=== PATIENT | female | born 1955 | race Caucasian/White ===

== ENCOUNTER → 2020-07-18 | Outpatient (CLI) | payer BC, OTHER ==
[~2020-07-18] MED LIST: ALPR0.25 PO; OMEP10CA5 PO
== END | disposition home or self-care (01) ==
LOC: RAD 13:32
PROVIDERS: ATTEND Physician Assistant
DX: K44.9 Diaphragmatic hernia without obstruction or gangrene (principal); Z98.84 Bariatric surgery status
CPT/HCPCS: 74240

== ENCOUNTER → 2020-09-01 | Outpatient (CLI) | payer OTHER ==
[~2020-09-01] MED LIST changes: +ATOR40TA78 PO; +BUPR300T94 PO; +CALC0.25 PO; +CYAN1TAB52 PO; +Calcium PO; +HAIR AND NAIL PO; +Iron PO; +LEVO75TA5 PO; +LISI-170 PO; +MULT-449 PO; +SERT50TA28 PO; +Vitamin C PO
[2020-09-01 17:09] LABS: ALANINE AMINOTRANSFERASE 35 U/L (12-78); ALBUMIN 3.5 g/dL (3.4-5.0); ANION GAP 7 mmol/L (5-15); CALCIUM 8.4 mg/dL (8.5-10.1); CHLORIDE 113 mmol/L (98-107); CREATININE 0.89 mg/dL (0.55-1.02)
[2020-09-01 17:11] LABS: ALKALINE PHOSPHATASE 122 U/L (45-117); BILIRUBIN,TOTAL 0.7 mg/dL (0.2-1.0); TOTAL PROTEIN 6.9 g/dL (6.4-8.2)
== END | disposition home or self-care (01) ==
LOC: STAR 15:30
PROVIDERS: ATTEND Thoracic Surgery (Cardiothoracic Vascular Surgery)
DX: Z01.818 Encounter for other preprocedural examination (principal); K44.9 Diaphragmatic hernia without obstruction or gangrene; Z20.822 Contact with and (suspected) exposure to COVID-19
CPT/HCPCS: 80053; 87635; 93005

== ENCOUNTER 2020-09-07 09:47 | Inpatient (IN) | payer OTHER ==
[~2020-09-07] VITALS: Ht 177.8 cm; Wt 169.0 kg
[~2020-09-07 09:47] MED LIST changes: +BUPIVACAINE/PF 0.5% ONE; +EPHEDRINE 50 MG/ML, 1ML IVPush PRN; +EPINEPHRINE 1 MG/ML, 1ML ONE; +FENTANYL PF 100 MCG/2ML IV PRN; +HYDROmorphone 1 MG/ML, 1ML INJ IVPush PRN; +LABETALOL 5MG/ML, 20ML IV PRN; +ONDANSETRON 2MG/ML, 2ML IVPush PRN; +OXYcodone 5 MG/5 ML ORAL.SOL UDC PO PRN; +PROMETHAZINE 25 MG/ML, 1ML IVPush PRN; +hydrALAzine 20 MG/ML, 1ML IV PRN
[2020-09-07] MEDS ORDERED: CHLORHEXIDINE 15 ML UDC MM ONE (10:30)
[2020-09-07] MEDS ORDERED: LACTATED RINGERS 1,000 ML IV SCH (10:30)
[2020-09-07 10:32] VITALS: BP 133/70
[2020-09-07] MEDS ORDERED: MIDAZOLAM 1 MG/ML, 2ML ONE (12:03)
[2020-09-07] MEDS ORDERED: FENTANYL PF 250 MCG/5ML ONE (12:03)
[2020-09-07] MEDS ORDERED: PROPOFOL 10 MG/ML, 20ML ONE (13:10)
[2020-09-07] MEDS ORDERED: LIDOCAINE-MPF 2% ,5ML ONE (13:10)
[2020-09-07] MEDS ORDERED: DEXAMETHASONE 4 MG/ML, 5ML ONE (13:10)
[2020-09-07] MEDS ORDERED: ROCURONIUM 10MG/ML,5ML ONE ×2 (13:10→14:21)
[2020-09-07] MEDS ORDERED: ONDANSETRON 2MG/ML, 2ML ONE (13:10)
[2020-09-07] MEDS ORDERED: CEFAZOLIN 1,000 MG ONE (13:10)
[2020-09-07] MEDS ORDERED: SUCCINYLCHOLINE 20 MG/ML, 10ML ONE (13:10)
[2020-09-07] MEDS ORDERED: SUGAMMADEX 200 MG/2 ML IVPush ONE ×2 (13:11→13:27)
[2020-09-07] MEDS ORDERED: KETOROLAC 30 MG/1 ML ONE (13:11)
[2020-09-07] MEDS ORDERED: BUPIVACAINE/PF-EPI 0.5% 1:200K INFIL ONE (13:33)
[2020-09-07] MEDS ORDERED: PROMETHAZINE 25 MG/ML, 1ML ONE (15:14)
[2020-09-07] MEDS ORDERED: SCOPOLAMINE 1MG PATCH TD ONE ×2 (15:25→15:30)
[2020-09-07] MEDS ORDERED: DIPHENHYDRAMINE 50 MG/ML, 1ML IV PRN (15:30)
[2020-09-07] MEDS: LACTATED RINGERS 1,000 ML IV SCH ×2 (15:30→21:30)
[2020-09-07] MEDS ORDERED: hydrALAzine 20 MG/ML, 1ML IVPush PRN (15:30)
[2020-09-07] MEDS ORDERED: PHENOL THROAT SPRAY BOTTLE MM PRN (15:30)
[2020-09-07] MEDS ORDERED: ONDANSETRON 2MG/ML, 2ML IVPush PRN (15:30)
[2020-09-07] MEDS ORDERED: METHOCARBAMOL 1,000 MG in DEXTROSE 5% 100 ML IV ONE (15:30)
[2020-09-07] MEDS ORDERED: PROMETHAZINE 12.5 MG SUPP PR PRN (15:30)
[2020-09-07] MEDS ORDERED: PROMETHAZINE 25 MG/ML, 1ML IM PRN (15:30)
[2020-09-07] MEDS ORDERED: LORazepam 2 MG/ML, 1ML IV PRN (15:30)
[2020-09-07] MEDS ORDERED: ENALAPRILAT 1.25 MG/ML, 2ML IV PRN (15:30)
[2020-09-07 16:00] VITALS: BP 173/84
[2020-09-07 16:30] VITALS: BP 184/101
[2020-09-07] MEDS ORDERED: FAMOTIDINE 20 MG/2 ML ONE (16:33)
[2020-09-07 18:30] VITALS: BP 177/88
[2020-09-07 19:44] VITALS: BP 171/85
[2020-09-07] MEDS ORDERED: KETOROLAC 30 MG/1 ML IVPush PRN (21:00)
[2020-09-07 21:04] VITALS: BP 163/81
[2020-09-07] MEDS: FAMOTIDINE 20 MG/2 ML IVPush SCH (21:16)
[2020-09-07] MEDS: HYDROcodone/APAP 7.5-325MG/15ML UDC PO PRN (23:26)
[2020-09-08 00:28] VITALS: BP 126/65
[2020-09-08] MEDS: LACTATED RINGERS 1,000 ML IV SCH ×2 (04:09→11:43)
[2020-09-08 04:23] VITALS: BP 111/73
[2020-09-08 05:15] LABS: BASOPHILS % (AUTO) 0 % (0-1); EOSINOPHILS % (AUTO) 0 % (1-7); LYMPHOCYTES % (AUTO) 10 % (22-44); MEAN CORPUSCULAR HEMOGLOBIN 29.6 pg (27.0-34.8); MEAN CORPUSCULAR HGB CONC 32.6 g/dL (32.4-35.8); MEAN PLATELET VOLUME 7.4 fL (7.4-10.4); MONOCYTES % (AUTO) 5 % (2-9); NEUTROPHILS % (AUTO) 85 % (42-75); PLATELET COUNT 213 x10^3/uL (130-400); RED BLOOD COUNT 4.19 x10^6/uL (3.82-5.3); RED CELL DISTRIBUTION WIDTH 13.9 % (9.6-15.2)
[2020-09-08 05:16] LABS: MD NO
[2020-09-08 05:24] LABS: ALBUMIN 3.1 g/dL (3.4-5.0); ANION GAP 9 mmol/L (5-15); CALCIUM 8.2 mg/dL (8.5-10.1); CHLORIDE 110 mmol/L (98-107); CREATININE 0.98 mg/dL (0.55-1.02)
[2020-09-08 07:53] VITALS: BP 129/61
[2020-09-08] MEDS: FAMOTIDINE 20 MG/2 ML IVPush SCH (08:39)
[2020-09-08] MEDS ORDERED: ENOXAPARIN 40 MG/0.4 ML SQ SCH (09:00)
[2020-09-08] MEDS ORDERED: LISINOPRIL 20 MG TABLET PO SCH (09:00)
[2020-09-08] MEDS ORDERED: LEVOTHYROXINE 75 MCG TABLET PO SCH (09:00)
[2020-09-08] MEDS ORDERED: SERTRALINE 50MG TABLET PO SCH (09:00)
[2020-09-08] MEDS ORDERED: FAMO-79 PO (09:36)
[2020-09-08] MEDS ORDERED: HYDR15SO3 PO (09:38)
[2020-09-08] MEDS: HYDROcodone/APAP 7.5-325MG/15ML UDC PO PRN (11:53)
[2020-09-08] MEDS ORDERED: ATORVASTATIN 40 MG TABLET PO SCH (21:00)
== END 2020-09-08 13:13 | disposition home or self-care (01) | DRG 327 ==
LOC: ORIP 09:47 → 4NE 16:16 → DCLOUNGE 09-08 13:07
PROVIDERS: ADMIT Thoracic Surgery (Cardiothoracic Vascular Surgery); ATTEND Thoracic Surgery (Cardiothoracic Vascular Surgery)
PROC: 0DNW4ZZ Release Peritoneum, Percutaneous Endoscopic Approach (ICD-10-PCS; 2020-09-07)
PROC: 8E0W4CZ Robotic Assisted Procedure of Trunk Region, Percutaneous Endoscopic Approach (ICD-10-PCS; 2020-09-07)
PROC: 0BQT4ZZ Repair Diaphragm, Percutaneous Endoscopic Approach (ICD-10-PCS; principal; 2020-09-07 12:30)
PROC: 0DB64ZZ Excision of Stomach, Percutaneous Endoscopic Approach (ICD-10-PCS; 2020-09-07 12:30)
DX: K44.9 Diaphragmatic hernia without obstruction or gangrene (principal); Z68.43 Body mass index [BMI] 50.0-59.9, adult; E66.01 Morbid (severe) obesity due to excess calories; R13.10 Dysphagia, unspecified; K21.9 Gastro-esophageal reflux disease without esophagitis; Z98.84 Bariatric surgery status
CPT/HCPCS: 36415; J3490; S0020; 80048; 82040; 85025; G0378; J0171; J0690; J1100; J1650; J1885; J2250; J2405; J2550; J2704; J3010; J0330; J0360; J2800; J7120